=== PATIENT | female | born 2000 ===

== ENCOUNTER 2021-01-15 21:59 | Emergency (ER) | payer SELFPAY ==
[~2021-01-15] VITALS: Ht 157.5 cm; Wt 68.0 kg
[2021-01-15 22:15] VITALS: BP 125/95
[2021-01-15] MEDS ORDERED: AZITHROMYCIN 250 MG TAB (ZITHROMAX) PO STA (22:28)
[2021-01-15] MEDS ORDERED: cefTRIAXone 1,000 MG/2.86 ml vial (IM ONLY) IM ONE (22:30)
[2021-01-15] MEDS ORDERED: LIDOCAINE 1% INJ 20 ML 20 ML VIAL INJ ONE (22:30)
[2021-01-15] MEDS ORDERED: METR500T PO (22:34)
--- NOTE | 2021-01-15 22:37 | ED GU-Female ---
General Chief Complaint: Female Reproductive Stated Complaint: PAIN WITH INTERCOURSE, DISCHARGE,ODOR Source: patient History of Present Illness Date Seen by Provider: Jan 15, 2021 Time Seen by Provider: 22:17 Initial Comments PT ARRIVES VIA POV C/O BROWN -YELLOW VAGINAL DISCHARGE WITH BAD ODOR FOR AT LEAST A YEAR C/O PAIN WITH INTERCOURSE FOR AT LEAST A YEAR NO ABDOMINAL PAIN OTHERWISE NO NAUSEA/VOMITING NO FEVER NO URINARY SYMPTOMS STATES SHE JUST MOVED HERE 2 WEEKS AGO FROM [place]. STATES A YEAR AGO, SHE WENT ON AN ER IN [facility] FOR THIS PROBLEM--DOES NOT KNOW WHAT SHE WAS DX WITH--STATES SHE WAS GIVEN "A PILL". WAS TOLD TO FOLLOW UP, WHICH SHE NEVER DID STATES HER SYMPTOMS GOT A LITTLE BETTER, BUT HAVE NOT GONE AWAY SYMPTOMS ARE NO DIFFERENT TONIGHT IN ANY WAY HAS NOT SOUGHT CARE WITH ANYONE SINCE ER VISIT A YEAR AGO HAS NOT TAKEN ANYTHING FOR SYMPTOMS STATES SHE HAS HAD 2 PARTNERS IN LAST YEAR, AND THEY DO NOT HAVE SYMPTOMS LMP--END October--STATES PERIODS ARE ALWAYS IRREGULAR. NO CONTROL PCP: NONE Allergies and Home Medications Allergies Coded Allergies: No Known Drug Allergies (Unverified , 01/15/21) Home Medications Ciprofloxacin HCl 500 Mg Tablet, 500 MG PO BID Prescribed by: CUBA RAMÍREZ on 01/15/21 2310 Metronidazole 500 Mg Tablet, 500 MG PO QID Prescribed by: CUBA RAMÍREZ on 01/15/21 2234 Patient Home Medication List Home Medication List Reviewed: Yes Review of Systems Review of Systems Constitutional: no symptoms reported Respiratory: no symptoms reported Cardiovascular: no symptoms reported Gastrointestinal: no symptoms reported Genitourinary: see HPI LMP: Nov 09, 2020 Musculoskeletal: no symptoms reported Skin: no symptoms reported Psychiatric/Neurological: No Symptoms Reported Endocrine: No Symptoms Reported Hematologic/Lymphatic: No Symptoms Reported Past Tgtnefu-Mdiblb-Oycjrw Hx Past Med/Social Hx: Reviewed and Corrections made Patient Social History Alcohol Use: Regular Use Alcohol Beverage of Choice: Beer Drug of Choice: DENIES Smoking Status: Current Everyday Smoker Type Used: Cigarettes Past Medical History Surgeries: No Respiratory: No Cardiac: No Neurological: No Reproductive Disorders: Yes (IRREGULAR PERIODS) Female Reproductive Disorders: Menstrual Problems Sexually Transmitted Disease: Yes (TRICHOMONAS DX 01/15/21) Genitourinary: No Gastrointestinal: No Musculoskeletal: No Endocrine: No HEENT: No Cancer: No Psychosocial: No Integumentary: No Blood Disorders: No Physical Exam Vital Signs Vital Signs - First Documented 01/15/21 22:15 Temp 36.4 Pulse 102 Resp 18 B/P (MAP) 125/95 (105) Pulse Ox 96 O2 Delivery Room Air Capillary Refill : Height, Weight, BMI Height: '" Weight: lbs. oz. kg; BMI Method: General Appearance: WD/WN, no apparent distress Cardiovascular: regular rate, rhythm, no murmur Respiratory: normal breath sounds, no respiratory distress Gastrointestinal: non tender, soft Pelvic: normal external exam, normal adnexa, no masses, discharge (LIGHT YELLOW), tender w/ cervical motion; No tender adnexa, No tender uterus, No vaginal bleeding; other (CERVIX ERODED AND INFLAMED AND VERY FRIABLE. ) Back: no CVA tenderness Extremities: normal inspection Neurologic/Psychiatric: no motor/sensory deficits, alert, normal mood/affect, oriented x 3 Skin: normal color (PT IS DARK-SKINNED), warm/dry; No rash Progress/Results/Core Measures Suspected Sepsis SIRS Temperature: Pulse: Respiratory Rate: Blood Pressure / Mean: Results/Orders Lab Results Laboratory Tests Test 01/15/21 22:25 01/15/21 22:47 Range/Units Urine Color YELLOW Urine Clarity CLEAR Urine pH 7.0 5-9 Urine Specific [place] 1.010 L 1.016-1.022 Urine Protein NEGATIVE NEGATIVE Urine Glucose (UA) NEGATIVE NEGATIVE Urine Ketones NEGATIVE NEGATIVE Urine Nitrite NEGATIVE NEGATIVE Urine Bilirubin NEGATIVE NEGATIVE Urine Urobilinogen 0.2 < = 1.0 MG/DL Urine Leukocyte Esterase 1+ H NEGATIVE Urine RBC (Auto) 3+ H NEGATIVE Urine RBC 2-5 H /HPF Urine WBC 10-25 H /HPF Urine Squamous Epithelial Cells 10-25 H /HPF Urine Crystals NONE /LPF Urine Bacteria FEW H /HPF Urine Casts NONE /LPF Urine Mucus NEGATIVE /LPF Urine Trichomonas MODERATE H /HPF Urine Culture Indicated CULTURE PENDING My Orders Orders - CUBA RAMÍREZ DO Neisseria Gonorrhea Swab (01/15/21 22:28) Chlam Dna Probe (01/15/21 22:28) Genital Culture (01/15/21 22:28) Wet Prep (01/15/21 22:28) Heidi Prep (01/15/21 22:28) Urine Bedside (01/15/21 22:28) Ua Culture If Indicated (01/15/21 22:28) Ceftriaxone For Im Use (Rocephin For Im (01/15/21 22:30) Azithromycin Tablet (Zithromax Tablet) (01/15/21 22:28) Lidocaine 1% Inj 20 Ml (Xylocaine 1% Inj (01/15/21 22:30) Medications Given in ED Current Medications Medications Dose Ordered Sig/Jossue Route Start Time Stop Time Status Last Admin Dose Admin Ceftriaxone Sodium 1,000 mg ONCE ONCE IM 01/15/21 22:30 01/15/21 22:31 DC 01/15/21 22:51 1,000 MG Lidocaine HCl 2.1 ml ONCE ONCE INJ 01/15/21 22:30 01/15/21 22:31 DC 01/15/21 22:52 2.1 ML Vital Signs/I&O 01/15/21 22:15 Temp 36.4 Pulse 102 Resp 18 B/P (MAP) 125/95 (105) Pulse Ox 96 O2 Delivery Room Air Capillary Refill : Progress Note : Progress Note MALE PARTNER IN ROOM WHEN I REVIEWED TEST RESULTS, AND ADVISED HIM OF NEED FOR EXAM AND TREATMENT WELL ADVISED BOTH OF IMPORTANCE OF NO INTERCOURSE UNTIL BOTH ARE RECHECKED BY DR AND CLEARED. Departure Impression Primary Impression: VAGINITIS AND CERVICITIS Additional Impressions: PID (acute pelvic inflammatory disease) Trichomonal vaginitis Urinary tract infection Disposition: 01 HOME, SELF-CARE Condition: Stable Departure-Patient Inst. Referrals: NO,LOCAL PHYSICIAN (PCP/Family) Primary Care Physician Patient Instructions: Pelvic Inflammatory Disease (DC), Sexually-Transmitted Diseases (DC), Trichomoniasis, Condom Options, Urinary Tract Infection, Adult (DC) Add. Discharge Instructions: NOTHING IN VAGINA--NO TAMPONS, DOUCHING OR INTERCOURSE--UNTIL YOU ARE RECHECKED AND CLEARED BY YOUR PARTNERS WILL NEED TO BE CHECKED AND TREATED--THEY MAY GO TO THEIR REGULAR DR OR FOLLOW UP WITH [facility] [place] TYLENOL AND MOTRIN NEEDED FOR PAIN FOLLOW UP WITH OF CHOICE IN 1 WEEK FOR FURTHER CARE--CALL ON MONDAY MORNING TO SCHEDULE AN APPOINTMENT All discharge instructions reviewed with patient and/or family. Voiced understanding. Scripts Ciprofloxacin HCl (Ciprofloxacin HCl) 500 Mg Tablet 500 MG PO BID, #20 TAB Prov: CUBA RAMÍREZ DO 01/15/21 Metronidazole (Flagyl) 500 Mg Tablet 500 MG PO QID, #40 TAB Prov: CUBA RAMÍREZ DO 01/15/21 CUBA RAMÍREZ DO Jan 15, 2021 22:37
[2021-01-15 22:52] LABS: BILIRUBIN,URINE NEGATIVE (NEGATIVE); CLARITY,URINE CLEAR; COLOR,URINE YELLOW; GLUCOSE, URINE (UA) NEGATIVE (NEGATIVE); KETONES,URINE NEGATIVE (NEGATIVE); LEUKOCYTE ESTERASE ,URINE 1+ (NEGATIVE); NITRITE,URINE NEGATIVE (NEGATIVE); PROTEIN,URINE NEGATIVE (NEGATIVE)
[2021-01-15 23:08] LABS: BACTERIA,URINE FEW /HPF; TRICHOMONAS,URINE MODERATE /HPF
[2021-01-15] MEDS ORDERED: CIPR500T5 PO (23:10)
== END 2021-01-15 23:15 | disposition home or self-care (01) ==
LOC: ER 22:02
DX: A59.01 Trichomonal vulvovaginitis (principal); N72 Inflammatory disease of cervix uteri; N39.0 Urinary tract infection, site not specified; F17.210 Nicotine dependence, cigarettes, uncomplicated
CPT/HCPCS: 36415; 81000; 84703; 87070; 87205; 87210; 87220; 87491; 87591; 99284